=== PATIENT | male | born 1995 | race Two or more races ===

== ENCOUNTER 2019-11-08 04:16 | Emergency (ER) | payer MEDICAID, OTHER ==
[~2019-11-08] VITALS: Ht 190.5 cm; Wt 109.1 kg
[2019-11-08] MEDS ORDERED: ondansetron 4mg rapidly disintigrating tab PO ONE (04:50)
[2019-11-08] MEDS ORDERED: acetaminophen 325mg tablet PO ONE (04:50)
[2019-11-08] MEDS ORDERED: ketorolac trometh inj. 60 MG/2 ML VIAL IM ONE (04:50)
[2019-11-08] MEDS ORDERED: amoxicillin 250mg capsule PO ONE (04:50)
[2019-11-08] MEDS ORDERED: dexamethasone sod phosphate 10mg/ml inj IM STA (04:50)
[2019-11-08] MEDS ORDERED: AMOX500C2 PO (04:52)
[2019-11-08 05:09] VITALS: BP 135/82
== END 2019-11-08 05:10 | disposition home or self-care (01) ==
LOC: ER 04:17
DX: J02.0 Streptococcal pharyngitis (principal); F17.200 Nicotine dependence, unspecified, uncomplicated; Z88.8 Allergy status to other drugs, medicaments and biological substances
CPT/HCPCS: 96372; 99284; J1100; J1885

== ENCOUNTER 2019-11-10 04:11 | Emergency (ER) | payer MEDICAID, OTHER ==
[~2019-11-10] VITALS: Ht 182.9 cm; Wt 102.0 kg
[~2019-11-10 04:11] MED LIST: AMOX500C2 PO
[2019-11-10] MEDS ORDERED: dexamethasone sod phosphate 10mg/ml inj IV STA ×2 (04:24→06:19)
[2019-11-10] MEDS ORDERED: CLINDAMYCIN/D5W 900mg/50ml 50 ML IV ONE (04:25)
--- NOTE | 2019-11-10 04:53 | NUR ---
pt to ct
[2019-11-10] MEDS ORDERED: iohexol 300mg/ml 100ml inj. ONE (04:55)
[2019-11-10] MEDS ORDERED: normal saline 1000ML IV soln IV ONE (06:10)
[2019-11-10 06:30] LABS: BASOPHILS % (AUTO) 0.2 % (0-1); EOSINOPHILS # (AUTO) 0.1 X10'3 (0-0.9); HEMATOCRIT 44.4 % (42.0-52.0); HEMOGLOBIN 15.1 g/dl (14.0-17.9); LYMPHOCYTES # (AUTO) 0.9 X10'3 (1.1-4.8); LYMPHOCYTES % (AUTO) 7.7 % (21-51); MEAN CORPUSCULAR HEMOGLOBIN 29.3 PG (27.0-31.0); MEAN CORPUSCULAR HGB CONC 33.9 g/dL (33.0-36.5); MEAN CORPUSCULAR VOLUME 86.3 FL (78-98); MEAN PLATELET VOLUME 9.2 FL (7.4-10.4); MONOCYTES # (AUTO) 0.7 X10'3 (0-0.9); MONOCYTES % (AUTO) 6.1 % (2-12); NEUTROPHILS # (AUTO) 9.5 X10'3 (1.8-7.7); PLATELET COUNT 202 X10'3 (140-440); RED BLOOD COUNT 5.14 X10'6 (4.70-6.10); RED CELL DISTRIBUTION WIDTH 14.4 % (11.5-14.5); WHITE BLOOD COUNT 11.2 X10'3 (4.5-11.0)
[2019-11-10 06:54] LABS: ALANINE AMINOTRANSFERASE 32 U/L (12-78); ALBUMIN 2.9 G/DL (3.4-5.0); ALBUMIN/GLOBULIN RATIO 0.8 (1.1-1.5); ALKALINE PHOSPHATASE 72 IU/L (46-116); ANION GAP 8 (8-16); ASPARTATE AMINO TRANSFERASE 15 U/L (10-37); BILIRUBIN,TOTAL 0.7 MG/DL (0.1-1.0); BLOOD UREA NITROGEN 13 MG/DL (7-18); CALCIUM 8.6 MG/DL (8.5-10.1); CHLORIDE 108 MMOL/L (99-107); CREATININE 0.81 MG/DL (0.60-1.10); GLUCOSE 95 MG/DL (70-104); POTASSIUM 3.9 MMOL/L (3.5-5.1); SODIUM 143 MMOL/L (135-145); TOTAL CARBON DIOXIDE 27.4 MMOL/L (24-32); TOTAL PROTEIN 6.7 G/DL (6.4-8.2); eGFR > 90 ML/MIN
[2019-11-10] MEDS ORDERED: ampicillin/sulbac 3gm/NS 100ml 100 ML IV SCH (08:00)
--- NOTE | 2019-11-10 08:36 | NUR ---
PT DSICHARGED NO MICHAEL MEZA
[2019-11-10 08:42] VITALS: BP 124/90
== END 2019-11-10 08:25 | disposition short-term general hospital (02) ==
LOC: ER 04:12
DX: J36 Peritonsillar abscess (principal); Z88.8 Allergy status to other drugs, medicaments and biological substances; Z79.899 Other long term (current) drug therapy
CPT/HCPCS: 36415; 70491; 80053; 85025; 87040; 96365; 96367; 96375; 96376; 99285; J1100; J7030; Q9967; J0295; J3490

== ENCOUNTER 2019-12-04 18:39 | Emergency (ER) | payer MEDICAID, OTHER ==
[~2019-12-04] VITALS: Ht 190.5 cm; Wt 111.7 kg
[2019-12-04 21:14] VITALS: BP 141/78
== END 2019-12-04 20:58 | disposition home or self-care (01) ==
LOC: ER 18:40
DX: T23.201A Burn of second degree of right hand, unspecified site, initial encounter (principal); Z79.2 Long term (current) use of antibiotics; Z88.8 Allergy status to other drugs, medicaments and biological substances; X12.XXXA Contact with other hot fluids, initial encounter; Y93.89 Activity, other specified; Y99.0 Civilian activity done for income or pay; Y92.511 Restaurant or cafe as the place of occurrence of the external cause
CPT/HCPCS: 16000; 99281; 99282

== ENCOUNTER 2019-12-20 17:20 | Emergency (ER) | payer MEDICAID, OTHER ==
[~2019-12-20] VITALS: Ht 190.5 cm; Wt 111.0 kg
[2019-12-20] MEDS ORDERED: dexamethasone sod phosphate 10mg/ml inj IV STA (19:01)
[2019-12-20] MEDS ORDERED: diphenhydrAMINE 50 mg/ml inj IV ONE (19:05)
[2019-12-20] MEDS ORDERED: proCHLORperazine 10 MG/2 ml inj IV ONE (19:05)
[2019-12-20] MEDS ORDERED: normal saline 1000ML IV soln IVB ONE (19:05)
[2019-12-20] MEDS ORDERED: ketorolac tromethamine 15mg/ml inj. IV ONE (19:05)
--- NOTE | 2019-12-20 19:44 | NUR ---
Patient is now sleeping comfortably.
[2019-12-20 21:07] VITALS: BP 125/68
== END 2019-12-20 21:08 | disposition home or self-care (01) ==
LOC: ER 17:20
DX: R51 Headache (principal); G47.00 Insomnia, unspecified; F17.210 Nicotine dependence, cigarettes, uncomplicated; Z88.8 Allergy status to other drugs, medicaments and biological substances
CPT/HCPCS: 96374; 96375; 99284; J0780; J1100; J1200; J1885; J7030

== ENCOUNTER 2020-10-27 15:23 | Emergency (ER) | payer MEDICAID ==
[~2020-10-27] VITALS: Ht 190.5 cm; Wt 115.9 kg
== END 2020-10-27 17:54 | disposition home or self-care (01) ==
LOC: ER 15:24
DX: R05 Cough (principal); R09.89 Other specified symptoms and signs involving the circulatory and respiratory systems; R11.0 Nausea; Z20.822 Contact with and (suspected) exposure to COVID-19; Z88.8 Allergy status to other drugs, medicaments and biological substances
CPT/HCPCS: 36415; 87635; 99283

== ENCOUNTER 2021-04-23 06:54 | Emergency (ER) | payer MEDICAID, OTHER ==
[~2021-04-23] VITALS: Ht 190.5 cm; Wt 147.7 kg
[2021-04-23 06:59] VITALS: BP 153/83
== END 2021-04-23 08:06 | disposition home or self-care (01) ==
LOC: ER 06:55
DX: Z88.8 Allergy status to other drugs, medicaments and biological substances (principal); T23.032A Burn of unspecified degree of multiple left fingers (nail), not including thumb, initial encounter; X10.1XXA Contact with hot food, initial encounter; Y93.89 Activity, other specified; Y92.89 Other specified places as the place of occurrence of the external cause; Y99.0 Civilian activity done for income or pay
CPT/HCPCS: 99281; 99282

== ENCOUNTER 2021-06-19 19:01 | Emergency (ER) | payer MEDICAID, OTHER ==
[~2021-06-19] VITALS: Ht 190.5 cm; Wt 166.0 kg
[2021-06-19 19:11] VITALS: BP 131/88
--- NOTE | 2021-06-19 19:17 | NUR ---
SEEN BY PA IN TRIAGE. OFF FOR XRAY. WILL BE PLACED IN ROOM 18
== END 2021-06-19 19:50 | disposition home or self-care (01) ==
LOC: ER 19:02
DX: M77.8 Other enthesopathies, not elsewhere classified (principal); F17.200 Nicotine dependence, unspecified, uncomplicated; J45.909 Unspecified asthma, uncomplicated; F12.90 Cannabis use, unspecified, uncomplicated; Z88.8 Allergy status to other drugs, medicaments and biological substances
CPT/HCPCS: 73110; 99283

== ENCOUNTER 2021-06-25 06:59 | Emergency (ER) | payer MEDICAID ==
[~2021-06-25] VITALS: Ht 190.5 cm; Wt 159.0 kg
[2021-06-25 07:16] VITALS: BP 143/87
[2021-06-25] MEDS ORDERED: ketorolac tromethamine 15mg/ml inj. IM ONE (08:10)
[2021-06-25] MEDS ORDERED: IBUP-1984 PO (08:15)
== END 2021-06-25 08:28 | disposition home or self-care (01) ==
LOC: ER 07:00
DX: M72.2 Plantar fascial fibromatosis (principal); F12.90 Cannabis use, unspecified, uncomplicated; Z88.8 Allergy status to other drugs, medicaments and biological substances; Z79.899 Other long term (current) drug therapy
CPT/HCPCS: 96372; 99283; J1885

== ENCOUNTER 2021-08-12 09:29 | Emergency (ER) | payer MEDICAID ==
[~2021-08-12] VITALS: Ht 190.5 cm; Wt 160.0 kg
[2021-08-12 10:12] VITALS: BP 150/87
[2021-08-12] MEDS ORDERED: ketorolac tromethamine 15mg/ml inj. IM ONE (10:20)
[2021-08-12] MEDS: ketorolac trometh. 30mg/ml inj. IM ONE (10:52)
== END 2021-08-12 11:00 | disposition home or self-care (01) ==
LOC: ER 09:29
DX: M67.833 Other specified disorders of tendon, right wrist (principal); J45.909 Unspecified asthma, uncomplicated; F12.10 Cannabis abuse, uncomplicated
CPT/HCPCS: 29125; 96372; 99283; J1885

== ENCOUNTER 2021-10-13 13:53 | Emergency (ER) | payer MEDICAID ==
[~2021-10-13] VITALS: Ht 190.5 cm; Wt 172.7 kg
[2021-10-13 14:11] VITALS: BP 140/91
== END 2021-10-13 16:45 | disposition left against medical advice (07) ==
LOC: ER 13:53
DX: R50.9 Fever, unspecified (principal); R06.02 Shortness of breath; M79.10 Myalgia, unspecified site; Z53.21 Procedure and treatment not carried out due to patient leaving prior to being seen by health care provider
CPT/HCPCS: 93005